=== PATIENT | male | born 1990 | race Caucasian/White ===

== ENCOUNTER 2017-06-12 13:30 | Emergency (ER) | payer OTHER ==
[2017-06-12 13:49] VITALS: BMI 22.8
[2017-06-12 13:50] VITALS: TEMP 98.9
--- NOTE | 2017-06-12 14:07 | C.PDOC ---
History Of Present Illness 26 t/o male c/o right hand pain x 6 weeks, worse in the last 4 days. pt sts it started after bench pressing in the gym. pt c/o pain to thenar eminence and to web space between thumb and index finger. pt denies any swelling to area, no numbness or tingling,. no ecchymosis, no weakness to fingers. pt takes ibuprofen occasionally. Time Seen by Provider: 06/12/17 13:56 Chief Complaint (Nursing): Finger,Hand,&Wrist History Per: Patient, Family History/Exam Limitations: no limitations Onset/Duration Of Symptoms: Days (6 weeks) Current Symptoms Are (Timing): Worse Quality: Tightness Severity: Moderate Pain Scale Rating Of: 7 Exacerbating Factor(s): Strenuous Use Of Affected Area, Movement Past Medical History Reviewed: Historical Data, Nursing Documentation, Vital Signs Vital Signs: Last Vital Signs Temp 98.9 F 06/12/17 13:49 Pulse 68 06/12/17 13:49 Resp 18 06/12/17 13:49 BP 153/79 H 06/12/17 13:49 Pulse Ox 98 06/12/17 15:34 - Medical History PMH: No Chronic Diseases Family History: States: Unknown Family Hx - Social History Hx Tobacco Use: No Hx Alcohol Use: Yes Hx Substance Use: No - Immunization History Hx Tetanus Toxoid Vaccination: No Hx Influenza Vaccination: No Hx Pneumococcal Vaccination: No Review Of Systems Constitutional: Negative for: Fever, Chills Musculoskeletal: Positive for: Hand Pain (right) Skin: Negative for: Bruising Neurological: Negative for: Weakness, Numbness Physical Exam - Physical Exam Appears: Non-toxic, No Acute Distress Extremity: Normal ROM (of right upper extremity at shoulder, elbow, wrist, all digits. mild tenderness to web space bwetween right thumb and index finger, and to thenar eminence. no swellling or bruising noted. cap refill less than 2 seconds. ), No Deformity Pulses: Left Radial: Normal, Right Radial: Normal Neurological/Psych: Oriented x3, Normal Speech, Normal Cognition, Normal Motor, Normal Sensation ED Course And Treatment O2 Sat by Pulse Oximetry: 98 Orthopedic Time Performed: 15:00 Time Out: Side verified, Site verified, Patient ID confirmed Procedure: Splint Type: Thumb spica Location: Right Consent obtained: Verbal Performed by: Mid-level Provider (done gorge stoddard, checked by me) Diagnosis: Sprain Bone: 1st (finger- thenar eminence and web space) Capillary refill: Normal Distal Sensation: Normal Distal Motor Function: Normal Capillary Refill: Normal Compartment: Normal Distal Sensation: Normal Distal Motor Function: Normal Medical Decision Making Medical Decision Making: pt with thenar eminence and web space tenderness. no swelling from of finger. splint applied, d/c wit nsaids and ortho.hand f/u Disposition Counseled Patient/Family Regarding: Diagnosis, Need For Followup, Rx Given - Disposition Referrals: Daniel Stewart MD [Staff Provider] - Disposition: HOME/ ROUTINE Disposition Time: 15:26 Condition: STABLE Additional Instructions: Wear splint for comfort. Keep dry- or you may remove for bathing and reapply. Take ibuprofen as prescribed for pain. Follow up with Dr Stewart, hand specialist. Call for an appointment. Recommend no working out at gym until pain resoled. Prescriptions: Ibuprofen [Motrin] 600 mg PO TID #30 tab Instructions: Hand Sprain (ED) Forms: [employer] (Mongolian) - Clinical Impression Clinical Impression: Sprain of hand, thumb, right
[2017-06-12 15:42] VITALS: BP 130/70; PULSE 72; RESP 20; O2SAT 99
== END 2017-06-12 15:42 | disposition home or self-care (01) ==
LOC: C.ER 13:30
DX: S63.601A Unspecified sprain of right thumb, initial encounter (principal); Y93.B9 Activity, other involving muscle strengthening exercises; Y92.39 Other specified sports and athletic area as the place of occurrence of the external cause